=== PATIENT | male | born 1935 | race Caucasian/White ===

== ENCOUNTER 2018-09-04 11:42 | Day surgery (SDC) | payer MEDICARE, BC ==
[~2018-09-04] VITALS: Ht 182.9 cm; Wt 97.2 kg
[~2018-09-04 11:42] MED LIST: ASPIRIN 81M81 MG/TA2 PO; CALCIUM500 MG; CARAFATE 1GM1 G PO; CARDI-OMEGA1000 MG PO; DALIRESP500 MCG PO; DEXILANT60 MG PO; FISH OIL 1000MG1 CAP PO; FLEXERIL 1010 MG/TAB PO; FLOMAX 0.40.4 MG/CAP PO; GLUCOSAMINE CHO1 CAP; LEVSIN0.125 M1; MICARDIS HCT 121 TA1 PO; MULTIPLE VITAMI1 CAP PO; NASONEX SPRAY17 GM NS; NORCO 325 MG-7.1 TAB PO; PHENOBARBITAL15 MG PO; PREVACID SOLUTA30 M2 PO; PROBIOTIC FORMU1 CAP PO; PROSCAR 5MG5 MG PO; SPECTAZOLE TP; SSKI1 GM/ML PO; TENORMIN 5050 MG/TAB PO; TIAZAC240 MG PO; VITAMIN B COMPL1 T16; VITAMIN D31000 IU; WELCHOL 625MG625 MG PO; ZANTAC 150 EFF150 M1 PO; ZITHROMAX Z PA250 MG PO; ZOFRAN ODT4 MG PO; ZOLOFT 50MG50 MG PO
[2018-09-04] MEDS ORDERED: LEXAPRO 10MG10 MG PO (12:11)
[2018-09-04] MEDS ORDERED: TOPROL XL 25MG25 MG PO (12:11)
[2018-09-04] MEDS ORDERED: ASPIRIN 81M81 MG/TA2 PO (12:12)
[2018-09-04] MEDS ORDERED: BIOTENE DRY M1000 ML MM (12:12)
[2018-09-04] MEDS ORDERED: OMEGA-3 1000 MG1 CAP PO (12:12)
[2018-09-04] MEDS ORDERED: HIBICLENS4% TP (12:13)
[2018-09-04] MEDS ORDERED: CETAPHIL MOISTU1 CRE TP (12:13)
[2018-09-04 12:36] VITALS: BP 150/118; PULSE 64; TEMP 98.2
[2018-09-04 13:50] VITALS: BP 102/72; PULSE 71; TEMP 97.5
--- NOTE | 2018-09-04 13:50 | NUR ---
Pt to GI bay 6 via cart from ENDO. Pt awake and alert. Denies pain or nausea. Pt ambulates to recliner with stand by assistance x2. Pt given warm blankets. Son in room. Muffin and soda given per pt request. Will continue to monitor. Call light within reach.
[2018-09-04 14:05] VITALS: BP 103/75; PULSE 67
--- NOTE | 2018-09-04 14:05 | NUR ---
Pt tolerating food and fluids without difficulties. Will continue to monitor. Call light within reach.
[2018-09-04 14:20] VITALS: BP 109/81; PULSE 79
--- NOTE | 2018-09-04 14:20 | NUR ---
in to consult with pt and son.
--- NOTE | 2018-09-04 14:30 | NUR ---
Discharge instructions reviewed. Pt voices understanding. IV site discontinued with all parts intact. Pt up to dress. Call light within reach.
--- NOTE | 2018-09-04 14:45 | NUR ---
Pt escorted to private car via wheel chair. Pt accompanied home by his son.
== END 2018-09-04 14:45 | disposition home or self-care (01) ==
LOC: SDCO 11:42
DX: Z12.11 Encounter for screening for malignant neoplasm of colon (principal); Z86.010 Personal history of colon polyps; K64.0 First degree hemorrhoids; Z79.899 Other long term (current) drug therapy; I48.92 Unspecified atrial flutter; G62.9 Polyneuropathy, unspecified; J44.9 Chronic obstructive pulmonary disease, unspecified; F41.9 Anxiety disorder, unspecified; R10.2 Pelvic and perineal pain; Z79.82 Long term (current) use of aspirin
CPT/HCPCS: J2370; J2704; J7030

== ENCOUNTER → 2019-08-28 | Outpatient (CLI) | payer MEDICARE, BC ==
[~2019-08-28] MED LIST changes: +BIOTENE DRY M1000 ML MM; +CETAPHIL MOISTU1 CRE TP; +HIBICLENS4% TP; +LEXAPRO 10MG10 MG PO; +OMEGA-3 1000 MG1 CAP PO; +TOPROL XL 25MG25 MG PO
== END ==
LOC: COL.RAD 10:36
DX: I71.4 Abdominal aortic aneurysm, without rupture (principal); N20.0 Calculus of kidney
CPT/HCPCS: Q9967

== ENCOUNTER 2020-09-17 07:02 | Day surgery (SDC) | payer MEDICARE, BC ==
[~2020-09-17] VITALS: Ht 188 cm; Wt 95.5 kg
[2020-09-17 07:34] VITALS: BP 100/62; PULSE 55; TEMP 98.2
[2020-09-17] MEDS ORDERED: TYLENOL 325MG325 MG PO ×2 (08:15→08:16)
[2020-09-17] MEDS ORDERED: NORVASC2.5 MG PO (08:16)
[2020-09-17] MEDS ORDERED: CEPACOL SORE TH1 LO8 MM (08:17)
[2020-09-17] MEDS ORDERED: COLACE 100100 MG/CAP PO (08:17)
[2020-09-17] MEDS ORDERED: LASIX 20MG TABL20 MG PO (08:19)
[2020-09-17] MEDS ORDERED: KLOR-CON 1010 MEQ PO (08:20)
[2020-09-17] MEDS ORDERED: MELATIN 3 MG-11 TAB PO (08:20)
[2020-09-17] MEDS ORDERED: TOPROL XL 50MG50 MG PO (08:21)
[2020-09-17] MEDS ORDERED: MIRALAX PA17 GM/Dose PO (08:22)
[2020-09-17] MEDS ORDERED: ONE-A-DAY ESSE1 EACH PO (08:23)
[2020-09-17] MEDS ORDERED: ROXICODONE 55 MG/TAB PO (08:24)
[2020-09-17] MEDS ORDERED: PRILOSEC 20MG20 MG PO (08:24)
[2020-09-17] MEDS ORDERED: CRESTOR5 MG PO (08:24)
[2020-09-17] MEDS ORDERED: SEROQUEL 2525 MG/TAB PO (08:25)
[2020-09-17] MEDS ORDERED: SEROQUEL50 MG PO (08:25)
[2020-09-17] MEDS ORDERED: FLOMAX 0.40.4 MG/CAP PO (08:26)
[2020-09-17] MEDS ORDERED: COUMADIN4 MG PO (08:27)
[2020-09-17 09:40] VITALS: BP 130/79; PULSE 57; TEMP 98.2
--- NOTE | 2020-09-17 09:40 | NUR ---
CYSTOSCOPY COMPLETE. RECEIVED OJ/ JELLO. NO NEW DISCOMFORTS
--- NOTE | 2020-09-17 10:00 | NUR ---
URINATED IN URINAL SITTING ON SIDE OF BED. VOIDED ORANGISH YELLOW URINE. ATE 100% AND TOLERATED WELL. ASSISTED PATIENT DRESSED AND ASSISTED INTO WC. RECEIVED DISCHARGE INSTRUCTIONS. REPORT CALLED TO [facility]. PATRICIA CALLED TO PATTERN MECHANIC PATIENT.
--- NOTE | 2020-09-17 10:20 | NUR ---
DISCHARGED PER BY NURSING STAFF TOP PRIVATE CAR IN CARE OF JOSE.(ASSISTED STAFF)
[2020-11-24] MEDS ORDERED: NORVASC 5MG5 MG/TAB PO (14:46)
[2020-11-24] MEDS ORDERED: LEXAPRO 5MG5 MG PO (14:49)
[2020-11-24] MEDS ORDERED: COUMADIN 5MG5 MG/TAB PO (14:55)
[2020-11-24] MEDS ORDERED: LOTRISONE CREAM15 GM TP (14:56)
== END 2020-09-17 10:20 | disposition home or self-care (01) ==
LOC: SDCO 07:02
DX: R31.0 Gross hematuria (principal); I71.9 Aortic aneurysm of unspecified site, without rupture; I35.0 Nonrheumatic aortic (valve) stenosis; I48.91 Unspecified atrial fibrillation; I10 Essential (primary) hypertension; J47.9 Bronchiectasis, uncomplicated; F32.9 Major depressive disorder, single episode, unspecified; M79.7 Fibromyalgia; K21.9 Gastro-esophageal reflux disease without esophagitis; Z85.46 Personal history of malignant neoplasm of prostate; Z86.73 Personal history of transient ischemic attack (TIA), and cerebral infarction without residual deficits; Z98.890 Other specified postprocedural states; Z79.82 Long term (current) use of aspirin; Z79.891 Long term (current) use of opiate analgesic; Z79.899 Other long term (current) drug therapy; Z79.01 Long term (current) use of anticoagulants; Z88.1 Allergy status to other antibiotic agents; Z88.8 Allergy status to other drugs, medicaments and biological substances; Z20.828 Contact with and (suspected) exposure to other viral communicable diseases; Z87.891 Personal history of nicotine dependence; Z82.49 Family history of ischemic heart disease and other diseases of the circulatory system

== ENCOUNTER → 2020-11-20 | Outpatient (CLI) | payer MEDICARE, BC ==
[~2020-11-20] MED LIST changes: +AMOXICILLIN 50500 MG PO; +CEPACOL SORE TH1 LO8 MM; +COLACE 100100 MG/CAP PO; +COUMADIN 5MG5 MG/TAB PO; +COUMADIN4 MG PO; +CRESTOR5 MG PO; +KLOR-CON 1010 MEQ PO; +LASIX 20MG TABL20 MG PO; +LEXAPRO 5MG5 MG PO; +LOTRISONE CREAM15 GM TP; +MELATIN 3 MG-11 TAB PO; +MIRALAX PA17 GM/Dose PO; +NORVASC 5MG5 MG/TAB PO; +NORVASC2.5 MG PO; +ONE-A-DAY ESSE1 EACH PO; +PLAVIX 75MG TAB75 MG PO; +PRILOSEC 20MG20 MG PO; +PROTONIX 40MG T40 MG PO; +RANEXA 500MG T500 MG PO; +ROXICODONE 55 MG/TAB PO; +SEROQUEL 2525 MG/TAB PO; +SEROQUEL50 MG PO; +TOPROL XL 50MG50 MG PO; +TYLENOL 325MG325 MG PO
== END ==
LOC: COL.RAD 08:15
DX: N30.20 Other chronic cystitis without hematuria (principal)

== ENCOUNTER 2020-11-25 12:56 | Day surgery (SDC) | payer MEDICARE, BC ==
[~2020-11-25] VITALS: Ht 188 cm; Wt 93.2 kg
[~2020-11-25 12:56] MED LIST changes: -AMOXICILLIN 50500 MG PO; -PLAVIX 75MG TAB75 MG PO; -PROTONIX 40MG T40 MG PO; -RANEXA 500MG T500 MG PO
[2020-11-25 13:59] VITALS: BP 169/89; PULSE 53; TEMP 98
[2020-11-25 14:25] VITALS: BP 167/100; PULSE 54
--- NOTE | 2020-11-25 14:25 | NUR ---
VSS. PATIENT WAS MOVING ARM WHEN BLOOD PRESSURE WAS BEING TAKEN. PATIENT DENIES DISCOMFORT FROM PROCEDURE. PATIENT ASSISTED WITH GETTING DRESSED. PATIENT WAS 2 ASSIST WITH TRANSFER FROM CART TO CHAIR. LONG-TERM CALLED AND STATED THAT STEP SON WILL BE BRINGING PATIENT BACK TO LONG-TERM. PHONE MADE TO DAMON, SON, ONLY ABLE TO LEAVE MESSAGE.
--- NOTE | 2020-11-25 14:45 | NUR ---
SPOKE WITH SON, DAMON. PATIENT DAUGHTER TO TAKE PATIENT BACK TO HALF-WAY. DISCHARGE INSTRUCTIONS GIVEN VERBAL AND DISCHARGE PACKET GIVEN TO PATIENT. QUESTIONS ANSWERED AND PATIENT VOICED UNDERSTANDING. 1450 PATIENT DISMISSED PER WHEEL CHAIR TO PATIENT'S DAUGHTER'S VAN. PATIENT TRANSFERRED WITH 2 ASSIST TO SEAT. QUESTIONS ANSWERED THAT DAUGHTER ASKED.
== END 2020-11-25 15:00 ==
LOC: SDCO 12:56
DX: N30.20 Other chronic cystitis without hematuria (principal); N31.2 Flaccid neuropathic bladder, not elsewhere classified; N20.0 Calculus of kidney; I71.4 Abdominal aortic aneurysm, without rupture; I35.0 Nonrheumatic aortic (valve) stenosis; I48.91 Unspecified atrial fibrillation; M79.7 Fibromyalgia; I10 Essential (primary) hypertension; J47.9 Bronchiectasis, uncomplicated; F32.9 Major depressive disorder, single episode, unspecified; Z86.73 Personal history of transient ischemic attack (TIA), and cerebral infarction without residual deficits; Z90.89 Acquired absence of other organs; Z79.899 Other long term (current) drug therapy; Z85.46 Personal history of malignant neoplasm of prostate; Z98.890 Other specified postprocedural states; Z79.891 Long term (current) use of opiate analgesic; Z79.01 Long term (current) use of anticoagulants; Z20.822 Contact with and (suspected) exposure to COVID-19; Z88.1 Allergy status to other antibiotic agents; Z88.8 Allergy status to other drugs, medicaments and biological substances; Z87.891 Personal history of nicotine dependence

== ENCOUNTER → 2021-02-22 | Outpatient (CLI) | payer MEDICARE, BC ==
[~2021-02-22] MED LIST changes: +AMOXICILLIN 50500 MG PO; +PLAVIX 75MG TAB75 MG PO; +PROTONIX 40MG T40 MG PO; +RANEXA 500MG T500 MG PO
== END ==
LOC: COL.RAD 10:42
DX: I71.4 Abdominal aortic aneurysm, without rupture (principal); Z95.828 Presence of other vascular implants and grafts
CPT/HCPCS: Q9967

== ENCOUNTER 2021-03-09 10:55 | Day surgery (SDC) | payer MEDICARE, BC, MEDICAID ==
[~2021-03-09] VITALS: Ht 188 cm; Wt 98.2 kg
[2021-03-09] VITALS (13 sets, daily range): BP systolic 100–197; BP diastolic 52–111; PULSE 49–97; TEMP 97.1–98.5
[~2021-03-09 10:55] MED LIST changes: -AMOXICILLIN 50500 MG PO; -PLAVIX 75MG TAB75 MG PO; -PROTONIX 40MG T40 MG PO; -RANEXA 500MG T500 MG PO
[2021-03-09] MEDS ORDERED: ASPIRIN 81M81 MG/TA2 PO (11:19)
[2021-03-09 11:47] LABS: HEMOGLOBIN 13.3 g/dl (13.5-18.0); MEAN CELL VOLUME 94 fl (80.0-100.0); MEAN CORPUSCULAR HEMOGLOBIN 31 pg (27.0-31.0); MEAN CORPUSCULAR HGB CONC 33 g/dl (33.0-37.0); MEAN PLATELET VOLUME 9.5 fl (7.4-10.4); PLATELET COUNT 148 K/mm3 (130-400); RED BLOOD COUNT 4.25 M/mm3 (4.20-5.60)
[2021-03-09 11:54] LABS: CALCIUM 9.5 mg/dL (8.4-10.2); CREATININE, serum 0.86 (0.66-1.25); POTASSIUM 4.4 mmol/L (3.4-5.0)
[2021-03-09 11:56] LABS: INR 1.2 (0.8-3.0); PROTHROMBIN TIME 12.8 SECONDS (9.7-12.8)
[2021-03-09 11:59] LABS: PARTIAL THROMBOPLASTIN TIME 31.4 SECONDS (26.0-37.0)
--- NOTE | 2021-03-09 16:28 | NUR ---
Pt transfered to Medical 357 via bed, accompanied by daughter - pt slightly confused/disoriented - reorientation and education provided. TRBand in place and stable and distal pulse 1+ Pt denies chest pain Pt recieved by EMBER Doherty
--- NOTE | 2021-03-09 16:44 | NUR ---
PT TO ROOM 357 PER BED WITH REPORT FROM JOAN RN CONVENTION MANAGER. PT ADMITTIED FOR OBS POST CARDIAC CATH PROCEEDURE. PT IS AWAKE ALERT BUT CONFUSED. VSS, TR BAND CDI WITH SOFT PALPABLE AREA AROUND. PT'S DAUGHTER IS IN ROOM. PT APPEARS TO BE CONFUSED BASELINE. IV TO LFA.
--- NOTE | 2021-03-09 20:30 | NUR ---
Initial assessment done- VSS, right wrist with radial band on -released 5 cc of air 30minutes ago--will release another 5 at this time-- no bleeding noted,, pt pleasant, confused, talking about alot of different topics, very nice, fidgety- will not keep the arm strigtening board on arm-- just left off for now-- right wrist look good- stood at bedside to void with assist- tele on- afib
--- NOTE | 2021-03-09 21:30 | NUR ---
Removed last 6 cc of air from right radial band-- no bleeding, removed- bandaid applied
[2021-03-10 00:05] VITALS: BP 106/69; PULSE 56; TEMP 98.2
[2021-03-10 03:38] VITALS: BP 141/95; PULSE 60; TEMP 98
--- NOTE | 2021-03-10 06:20 | NUR ---
Quiet night-- right wrist remain good- no hematoma or drainage, VSS, confused but pleasant. Bed alarm on. IV to INT this morning.
[2021-03-10 06:58] LABS: BASO % 0.4 % (0.0-2.0); EOS # 0.1 (0.0-0.7); EOS % 1.8 % (0-4.0); GRAN # 4.7 (1.4-6.5); GRAN % 65.7 % (42.2-75.2); LYMPH # 1.6 (1.2-3.4); LYMPH % 22.3 % (20.0-51.0); MEAN CELL VOLUME 96 fl (80.0-100.0); MEAN CORPUSCULAR HGB CONC 33 g/dl (33.0-37.0); MEAN PLATELET VOLUME 10.1 fl (7.4-10.4); MONO # 0.7 (0.1-0.6); MONO % 9.5 % (1.7-9.3); PLATELET COUNT 136 K/mm3 (130-400); RED BLOOD COUNT 3.63 M/mm3 (4.20-5.60); REDCELL DISTRIBUTION WIDTH-CV 13.7 % (11.5-14.5)
[2021-03-10 07:08] LABS: CREATININE, serum 0.92 (0.66-1.25); POTASSIUM 4.3 mmol/L (3.4-5.0)
[2021-03-10 07:14] LABS: HEMATOCRIT 34.7 % (42.0-52.0); HEMOGLOBIN 11.3 g/dl (13.5-18.0); MEAN CORPUSCULAR HEMOGLOBIN 31 pg (27.0-31.0)
[2021-03-10 08:15] VITALS: BP 130/81; PULSE 62; TEMP 98.1
--- NOTE | 2021-03-10 09:19 | NUR ---
AD met with the patient and his daughter, Mell (ph#[phone]), to discuss discharge plan. Mell reports that the patient resides at [facility] in LTC and the plan is for the patient to return back to [facility] upon discharge. His PCP is Dr. Anton Candelaria and his DPOA-HC is in EMR. His DPOA-HC is his son, Brandin (ph#[phone]), and/or Mell or Kvng. Mell reports that the patient was approved fro Medicaid. AD consulted admissions and financial counselor, Deneen. Mell reports that she will transport the patient back to [facility] today. AD notified and faxed updates to Marbella at [facility]. *Discharge plan: [facility]*
[2021-03-10] MEDS ORDERED: PLAVIX 75MG TAB75 MG PO (09:30)
[2021-03-10] MEDS ORDERED: RANEXA 500MG T500 MG PO (09:30)
[2021-03-10] MEDS ORDERED: PROTONIX 40MG T40 MG PO (09:33)
[2021-03-10] MEDS ORDERED: AMOXICILLIN 50500 MG PO (09:33)
--- NOTE | 2021-03-10 09:44 | NUR ---
The patient is to discharge today, 03/10, back to [facility] for long-term care. Transportation is to be by private vehicle, via the patient's daughter. No additional needs at this time.
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
== END 2021-03-10 11:15 ==
LOC: MEDICAL 10:55 → COL.CAR 10:55 → MEDICAL 16:37 → COL.CAR 03-10 11:15
PROVIDERS: Internal Medicine Cardiovascular Disease
DX: I25.10 Atherosclerotic heart disease of native coronary artery without angina pectoris (principal); I48.11 Longstanding persistent atrial fibrillation; I10 Essential (primary) hypertension; I65.21 Occlusion and stenosis of right carotid artery; I08.3 Combined rheumatic disorders of mitral, aortic and tricuspid valves; E87.1 Hypo-osmolality and hyponatremia; K56.2 Volvulus; D69.6 Thrombocytopenia, unspecified; F32.9 Major depressive disorder, single episode, unspecified; Z98.890 Other specified postprocedural states; Z79.891 Long term (current) use of opiate analgesic; Z79.899 Other long term (current) drug therapy; Z79.01 Long term (current) use of anticoagulants; Z87.891 Personal history of nicotine dependence
CPT/HCPCS: OP; C1725; C1769; C1876; C1887; J0583; J1644; J2250; J3010; Q9967